=== PATIENT | male | born 1945 | race Caucasian/White ===

== ENCOUNTER 2018-04-15 08:05 | Day surgery (SDC) | payer MEDICARE, BC ==
[2018-04-15] MEDS ORDERED: IODIXANOL 320MG/ML 100 ML BOTTLE IV ONE ×2 (10:45→12:09)
[2018-04-15] MEDS ORDERED: LIDOCAINE HCL 1% 10 MG/ML 10ML VIAL ONE (10:45)
[2018-04-15] MEDS ORDERED: HEPARIN SODIUM 1,000 UNIT/1ML VIAL IV ONE (11:00)
[2018-04-15] MEDS ORDERED: NITROGLYCERIN 50MCG/ML 10ML VIAL (CATH LAB) IV ONE (11:00)
[2018-04-15] MEDS ORDERED: NICARDIPINE 100MCG/ML 10ML VIAL (CATH LAB) IV ONE (11:00)
[2018-04-15] MEDS ORDERED: ASPIRIN/SOD BICARB/CITRIC ACID 324MG TAB EFF ONE (11:15)
[2018-04-15] MEDS ORDERED: MIDAZOLAM HCL 2 MG/2 ML VIAL ONE (11:23)
[2018-04-15] MEDS ORDERED: FENTANYL CITRATE/PF 50MCG/ML 2ML VIAL ONE (11:23)
[2018-04-15] MEDS ORDERED: IOHEXOL-300 100 ML BOTTLE ONE (11:58)
[2018-04-15 11:59] LABS: BASOPHILS % 0.4 % (0.0-2.0); CHLORIDE 104 mEq/L (98-107); EOSINOPHILS % 5.8 % (0.0-5.0); HEMATOCRIT. 39.9 % (42.0-52.0); HEMOGLOBIN. 13.6 g/dL (14.0-18.0); LYMPHOCYTES % 29.4 % (20.0-50.0); MEAN CORPUSCULAR HEMOGLOBIN 32.3 pg (28.0-32.0); MEAN CORPUSCULAR VOLUME 94.7 fL (80.0-94.0); MEAN PLATELET VOLUME 7.6 fl (7.4-10.4); MONOCYTES % 11.6 % (2.0-8.0); NEUTROPHILS % 52.8 % (40.0-76.0); PLATELET 172 x1000/uL (130-400); RED BLOOD CELL COUNT 4.22 mill/uL (4.7-6.1); RED CELL DISTRIBUTION WIDTH 14.4 % (11.6-14.6)
[2018-04-15 12:03] LABS: PARTIAL THROMBOPLASTIN TIME 27.5 sec (23.4-31.0); PROTHROMBIN TIME 9.6 sec (9.1-11.1)
[2018-04-15] MEDS ORDERED: SODIUM CHLORIDE 0.45% 1,000 ML IV ONE (12:45)
[2018-04-15] MEDS ORDERED: MORPHINE SULFATE 4 MG/ML CPJ (NOT FOR IM USE) IV PRN (16:00)
[2018-04-15] MEDS ORDERED: ACETAMINOPHEN 325MG TABLET PO PRN (16:00)
[2018-04-15] MEDS ORDERED: ONDANSETRON HCL 4MG/2ML VIAL IV PRN (16:00)
== END 2018-04-15 16:30 | disposition home or self-care (01) ==
LOC: CCL 08:05
PROVIDERS: ATTEND Specialist
DX: I25.10 Atherosclerotic heart disease of native coronary artery without angina pectoris (principal); E78.5 Hyperlipidemia, unspecified; E11.9 Type 2 diabetes mellitus without complications; I10 Essential (primary) hypertension; Z79.899 Other long term (current) drug therapy; Z98.890 Other specified postprocedural states
CPT/HCPCS: 36415; 80048; 85025; 85347; 85610; 85730; 93458; 99152; 99153; C1769; C1887; C1893; J1644; J2250; J3010; J3490; J7030; Q9967

== ENCOUNTER → 2020-04-11 | Outpatient (CLI) | payer MEDICARE, BC ==
[~2020-04-11] MED LIST: ASPI-1158 MT; ATOR80TA MT; AZEL205. BOTHNSTRLS; AZEL6DRO5 EACHEYE; CETI10CA2 MT; DULA1.5P SQ; METF-416 MT; NAPR220T66 PO; TELM20TA8 MT
== END | disposition home or self-care (01) ==
LOC: LAB 11:21
PROVIDERS: ATTEND Specialist
DX: R05 Cough (principal); Z20.828 Contact with and (suspected) exposure to other viral communicable diseases
CPT/HCPCS: C9803; U0003

== ENCOUNTER → 2020-04-13 | Day surgery (SDC) | payer MEDICARE, BC ==
[~2020-04-13] MED LIST changes: +ACETAMINOPHEN 325MG TABLET PO PRN; +ATROPINE SULFATE 1MG/10ML SYR IV PRN; +FENTANYL CITRATE/PF 50MCG/ML 2ML VIAL ONE; +IODIXANOL 320MG/ML 100 ML BOTTLE IV ONE; +LIDOCAINE HCL 1% 20ML VIAL (Pyxis) INJ ONE; +MIDAZOLAM HCL 2 MG/2 ML VIAL ONE; +ONDANSETRON HCL 4MG/2ML INJ IV PRN
== END | disposition home or self-care (01) ==
LOC: CCL 09:18
PROVIDERS: ATTEND Specialist
DX: I25.10 Atherosclerotic heart disease of native coronary artery without angina pectoris (principal); I10 Essential (primary) hypertension; E78.5 Hyperlipidemia, unspecified; E11.9 Type 2 diabetes mellitus without complications; I11.9 Hypertensive heart disease without heart failure; Z79.82 Long term (current) use of aspirin; Z79.84 Long term (current) use of oral hypoglycemic drugs; Z79.899 Other long term (current) drug therapy; Z86.73 Personal history of transient ischemic attack (TIA), and cerebral infarction without residual deficits; Z98.890 Other specified postprocedural states
CPT/HCPCS: 82962; 85347; 93458; 93571; C1769; C1887; C1893; J1644; J2250; J3010; J3490; Q9967